=== PATIENT | female | born 1995 | race Caucasian/White ===

== ENCOUNTER 2017-08-21 17:10 | Emergency (ER) | payer BC, OTHER ==
[~2017-08-21] VITALS: Ht 154.9 cm; Wt 72.6 kg
[2017-08-21] MEDS ORDERED: LACTATED RINGERS 1,000 ML IV ONE (18:41)
[2017-08-21 18:48] LABS: BASOPHILS # (AUTO) 0.1 10^3/uL (0.0-0.1); BASOPHILS % (AUTO) 1 % (0-10); EOSINOPHILS # (AUTO) 0.1 10^3/uL (0.0-0.3); EOSINOPHILS % (AUTO) 1 % (0-10); HEMATOCRIT 45 % (35-52); HEMOGLOBIN 15.9 G/DL (11.5-16.0); LYMPHOCYTES # (AUTO) 2.7 X 10^3 (1.0-4.0); LYMPHOCYTES % (AUTO) 30 % (12-44); MEAN CORPUSCULAR HEMOGLOBIN 29 PG (25-34); MEAN CORPUSCULAR HGB CONC 35 G/DL (32-36); MEAN CORPUSCULAR VOLUME 84 FL (80-99); MEAN PLATELET VOLUME 11.6 FL (7.4-10.4); MONOCYTES # (AUTO) 0.7 X 10^3 (0.0-1.0); MONOCYTES % (AUTO) 8 % (0-12); NEUTROPHILS # (AUTO) 5.3 X 10^3 (1.8-7.8); NEUTROPHILS % (AUTO) 60 % (42-75); PLATELET COUNT 237 10^3/uL (130-400); RED BLOOD COUNT 5.41 10^6/uL (4.35-5.85); WHITE BLOOD COUNT 8.8 10^3/uL (4.3-11.0)
[2017-08-21] MEDS ORDERED: fentaNYL INJECTION 100 MCG/2 ML AMP IVP STA (18:49)
[2017-08-21] MEDS ORDERED: DICY10CA12 PO (18:52)
[2017-08-21] MEDS ORDERED: NS 250 ML (IVPB) BAG IV ONE (19:00)
[2017-08-21] MEDS ORDERED: CATHETER FLUSH 10 ML SYR IV PRN (19:00)
[2017-08-21] MEDS ORDERED: IOHEXOL 350 MG/ML 100 ML (OMNIPAQUE 350) VIAL IV ONE (19:00)
--- NOTE | 2017-08-21 19:03 | ED Abdominal Pain ---
General Chief Complaint: Abdominal/GI Problems Stated Complaint: STOMACH PAIN,[facility] STATED POSS APPENDICITIS Nursing Triage Note: Pt c/o RLQ abd pain. Pt reports n/v/d x3 days. Pt was seen at [facility] for chronic abd pain and was told she may have chronic appendicitis and to come to ER if pain got worse. Source of Information: Patient Exam Limitations: No Limitations History of Present Illness Date Seen by Provider: Aug 21, 2017 Time Seen by Provider: 18:45 Initial Comments Here with complaint of right lower quadrant pain that has been going on for the last 4 days. This is associated with nausea, vomiting and diarrhea for the last 3 days. She was seen at [facility] and they had concerns related to the right lower quadrant pain and sent her here for further evaluation. Apparently she had a similar episode a little over a year ago. Because of this, there is some concerns about chronic appendicitis although this seems to be an acute case if it is appendicitis. Timing/Duration: 3-4 Days Severity/Quality: Moderate, Aching, Sharp Location: RLQ Radiation: No Radiation Activities at Onset: None Modifying Factors: Worsens With Movement, Improves With Resting Associated Symptoms: No Back Pain, No Chest Pain, Fever/Chills, Nausea/Vomiting , No Swelling/Mass in Abdomen, No Weakness Allergies and Home Medications Allergies Coded Allergies: No Known Drug Allergies (Unverified , 08/21/17) Home Medications Dicyclomine HCl 10 Mg Capsule, 10 MG PO TID, (Reported) Patient Home Medication List Home Medication List Reviewed: Yes Review of Systems Constitutional: see HPI, No chills, fever EENTM: No Symptoms Reported Respiratory: No Symptoms Reported Cardiovascular: No Symptoms Reported Gastrointestinal: See HPI, Abdominal Pain, Diarrhea, Nausea, Vomiting Genitourinary: No Symptoms Reported Musculoskeletal: no symptoms reported Skin: no symptoms reported All Other Systems Reviewed Negative Unless Noted: Yes Past Kegmymw-Gzukqr-Nvzhcf Hx Patient Social History Alcohol Use: Denies Use Recreational Drug Use: No Smoking Status: Never a Smoker Recent Foreign Travel: No Contact w/Someone Who Travel: No Recent Infectious Disease Expo: No Physical Abuse: No Sexual Abuse: No Surgeries History of Surgeries: No Respiratory History of Respiratory Disorde: No Cardiovascular History of Cardiac Disorders: No Neurological History of Neurological Disord: No Genitourinary History of Genitourinary Disor: No Gastrointestinal History of Gastrointestinal Di: No Musculoskeletal History of Musculoskeletal Dis: No HEENT History of HEENT Disorders: No Cancer History of Cancer: No Psychosocial Suicide Risk Score: 0 Reviewed Nursing Assessment Reviewed/Agree w Nursing PMH: Yes Family Medical History Significant Family History: No Pertinent Family Hx Physical Exam Vital Signs VS - Last 72 Hours, by Label 08/21/17 17:42 Temp 98.3 Pulse 69 Resp 18 B/P (MAP) 107/59 O2 Delivery Room Air Capillary Refill : General Appearance: WD/WN, mild distress HEENT: PERRL/EOMI, pharynx normal Neck: full range of motion, supple Respiratory: lungs clear, normal breath sounds Cardiovascular: regular rate, rhythm, no murmur Gastrointestinal: soft, No guarding, No rebound, tenderness (right lower quadrant) Extremities: non-tender, normal inspection Back: normal inspection, no CVA tenderness, no vertebral tenderness Neurologic/Psychiatric: alert, oriented x 3 Skin: normal color, warm/dry Progress/Results/Core Measures Results/Orders Lab Results Laboratory Tests Test 08/21/17 18:35 Range/Units White Blood Count 8.8 4.3-11.0 10^3/uL Red Blood Count 5.41 4.35-5.85 10^6/uL Hemoglobin 15.9 11.5-16.0 G/DL Hematocrit 45 35-52 % Mean Corpuscular Volume 84 80-99 FL Mean Corpuscular Hemoglobin 29 25-34 PG Mean Corpuscular Hemoglobin Concent 35 32-36 G/DL Red Cell Distribution Width 12.0 10.0-14.5 % Platelet Count 237 130-400 10^3/uL Mean Platelet Volume 11.6 H 7.4-10.4 FL Neutrophils (%) (Auto) 60 42-75 % Lymphocytes (%) (Auto) 30 12-44 % Monocytes (%) (Auto) 8 0-12 % Eosinophils (%) (Auto) 1 0-10 % Basophils (%) (Auto) 1 0-10 % Neutrophils # (Auto) 5.3 1.8-7.8 X 10^3 Lymphocytes # (Auto) 2.7 1.0-4.0 X 10^3 Monocytes # (Auto) 0.7 0.0-1.0 X 10^3 Eosinophils # (Auto) 0.1 0.0-0.3 10^3/uL Basophils # (Auto) 0.1 0.0-0.1 10^3/uL Sodium Level 140 135-145 MMOL/L Potassium Level 4.0 3.6-5.0 MMOL/L Chloride Level 102 98-107 MMOL/L Carbon Dioxide Level 27 21-32 MMOL/L Anion Gap 11 5-14 MMOL/L Blood Urea Nitrogen 9 7-18 MG/DL Creatinine 0.93 0.60-1.30 MG/DL Estimat Glomerular Filtration Rate > 60 BUN/Creatinine Ratio 10 Glucose Level 82 70-105 MG/DL Calcium Level 9.9 8.5-10.1 MG/DL Total Bilirubin 1.1 H 0.1-1.0 MG/DL Aspartate Amino Transf (AST/SGOT) 20 5-34 U/L Alanine Aminotransferase (ALT/SGPT) 19 0-55 U/L Alkaline Phosphatase 60 40-136 U/L C-Reactive Protein High Sensitivity 0.40 0.00-0.50 MG/DL Total Protein 8.1 6.4-8.2 GM/DL Albumin 4.9 H 3.2-4.5 GM/DL My Orders Orders - SAVANNA PACK MD Cbc With Automated Diff (08/21/17 18:22) Comprehensive Metabolic Panel (08/21/17 18:22) Hs C Reactive Protein (08/21/17 18:22) Saline Lock/Iv-Start (08/21/17 18:22) Urine Bedside (08/21/17 18:22) Saline Lock/Iv-Start (08/21/17 18:22) Saline Lock/Iv-Start (08/21/17 18:41) Lactated Ringers (Lr 1000 Ml Iv Solution (08/21/17 18:41) Fentanyl Injection (Sublimaze Injection (08/21/17 18:49) Ct Abd/Pelv W (Appendicitis) (08/21/17 18:58) Iohexol Injection (Omnipaque 350 Mg/Ml 1 (08/21/17 19:00) Ns (Ivpb) (Sodium Chloride 0.9%) (08/21/17 19:00) Pharmacy Communication (Pharmacy Communi (08/21/17 19:00) Sodium Chloride Flush (Catheter Flush Sy (08/21/17 19:00) Medications Given in ED Current Medications Medications Dose Ordered Sig/Bola Route Start Time Stop Time Status Last Admin Dose Admin Iohexol 100 ml ONCE ONCE IV 08/21/17 19:00 08/21/17 19:02 DC 08/21/17 19:12 100 ML Lactated Ringer's 1,000 ml @ 0 mls/hr Q0M ONCE IV 08/21/17 18:41 08/21/17 18:42 DC 08/21/17 18:54 1,000 MLS/HR Sodium Chloride 10 ml NEEDED PRN IV 08/21/17 19:00 08/21/17 19:13 10 ML Sodium Chloride 250 ml ONCE ONCE IV 08/21/17 19:00 08/21/17 19:02 DC 08/21/17 19:13 80 ML Vital Signs/I&O Vital Sign - Last 12Hours 08/21/17 17:42 Temp 98.3 Pulse 69 Resp 18 B/P (MAP) 107/59 O2 Delivery Room Air Point of Care Testing Urine -Bedside: Negative Progress Note : Progress Note Seen and evaluated. IV, labs, UA, UCG ordered. LR 1 L bolus. Fentanyl [address] abdomen pelvis appendicitis protocol ordered. Monitor patient. 1950: Patient was seen by Dr. Wallace and myself after talking with Dr. Schroeder. No indications of appendicitis on labs or on the CT scan. This is apparently her third CT scan in the last year. Dr. Wallace will see her in the office on Thursday they will get further evaluation with ultrasound possibly and/ or endoscopy or otherwise as needed. Patient agrees. Discharged home with return precautions. Patient verbalize understanding instructions and agreement with plan. Diagnostic Imaging Diagonstic Imaging: CT Plain Films/CT/US/NM/MRI: abdomen, pelvis Comments NAME: [facility]EN[facility] REC#: [id number] PT STATUS: REG ER : 1995 PHYSICIAN: SAVANNA PACK MD ADMIT DATE: 08/21/17/ER Signed Date of Exam: 08/21/17 CT ABD/PELV W (APPENDICITIS) PROCEDURE: CT abdomen and pelvis with contrast, rule out appendicitis. TECHNIQUE: Multiple contiguous axial images were obtained through the abdomen and pelvis after the administration of intravenous contrast. INDICATION: Right lower quadrant abdominal pain x1 week. Nausea, vomiting, and diarrhea. Fever. COMPARISON: None. FINDINGS: Included portions of the lung bases are clear. CT abdomen: Small bowel loops are nondistended. Normal appendix is identified. The kidneys, adrenal glands, spleen, pancreas, and liver have a normal CT appearance. There is no loculated fluid collection, free fluid, nor free air within the abdomen. No abnormal mesenteric or retroperitoneal adenopathy is seen. CT pelvis: Small amount of free fluid is noted within the pelvis. There is a cystic structure in the right adnexa which appears to be associated with the right ovary that measures 1.5 x 1.5 cm. There is no loculated fluid collection or free air within the pelvis. Urinary bladder is unopacified. No calculi are seen within the urinary bladder. There is no abnormal adenopathy. Bony structures show no acute abnormalities. IMPRESSION: 1. Mild amount of free fluid within the pelvis, which may be physiologic and related to right ovarian cyst. 2. Normal appendix. 3. No other acute abnormalities are seen within the abdomen or pelvis. Dictated by: Dictated on workstation # [id number] Dict: 08/21/171917 Trans: 08/21/171924 Interpreted by: VIVEK LORA MD Electronically signed by: VIVEK LORA MD 08/21/171924 Departure Communication (Admissions) Time/Spoke to Consulting Phy: 19:30 Impression Impression: Primary Impression: Right lower quadrant abdominal pain Disposition: HOME, SELF-CARE Condition: Stable Departure-Patient Inst. Decision time for Depature: 19:58 Referrals: LYDIA WALLACE DO [facility] (PCP) Primary Care Physician Patient Instructions: Acute Abdomen (Belly Pain), Adult (DC) Add. Discharge Instructions: All discharge instructions reviewed with patient and/or family. Voiced understanding. May take ibuprofen 600 mg every 8 hours as needed for pain. You may take Tylenol/acetaminophen 1000 mg every 8 hours as needed for pain. Drink plenty of fluids. You may eat a light diet. Follow-up with Dr. Wallace on Thursday for recheck and further evaluation. Call his office first thing in the morning for appointment time. Return for worse pain, fever, vomiting, weakness, breathing problems or other concerns as needed. Copy Copies To 1: WALLACE,LYDIA D DO Copies To 2: LUIS EDUARDO SCHROEDER MD, TIMOTHY D MD Aug 21, 2017 19:03
[2017-08-21 19:11] LABS: ALANINE AMINOTRANSFERASE 19 U/L (0-55); ALBUMIN 4.9 GM/DL (3.2-4.5); ALKALINE PHOSPHATASE 60 U/L (40-136); BILIRUBIN,TOTAL 1.1 MG/DL (0.1-1.0); BUN/CREATININE RATIO 10; CALCIUM 9.9 MG/DL (8.5-10.1); CARBON DIOXIDE 27 MMOL/L (21-32); CHLORIDE 102 MMOL/L (98-107); CREATININE SERUM 0.93 MG/DL (0.60-1.30); GFR ESTIMATED > 60; GLUCOSE 82 MG/DL (70-105); SODIUM 140 MMOL/L (135-145); TOTAL PROTEIN 8.1 GM/DL (6.4-8.2)
--- NOTE | 2017-08-21 19:25 | Diagnostic Imaging Report ---
PROCEDURE: CT abdomen and pelvis with contrast, rule out appendicitis. TECHNIQUE: Multiple contiguous axial images were obtained through the abdomen and pelvis after the administration of intravenous contrast. INDICATION: Right lower quadrant abdominal pain x1 week. Nausea, vomiting, and diarrhea. Fever. COMPARISON: None. FINDINGS: Included portions of the lung bases are clear. CT abdomen: Small bowel loops are nondistended. Normal appendix is identified. The kidneys, adrenal glands, spleen, pancreas, and liver have a normal CT appearance. There is no loculated fluid collection, free fluid, nor free air within the abdomen. No abnormal mesenteric or retroperitoneal adenopathy is seen. CT pelvis: Small amount of free fluid is noted within the pelvis. There is a cystic structure in the right adnexa which appears to be associated with the right ovary that measures 1.5 x 1.5 cm. There is no loculated fluid collection or free air within the pelvis. Urinary bladder is unopacified. No calculi are seen within the urinary bladder. There is no abnormal adenopathy. Bony structures show no acute abnormalities. IMPRESSION: 1. Mild amount of free fluid within the pelvis, which may be physiologic and related to right ovarian cyst. 2. Normal appendix. 3. No other acute abnormalities are seen within the abdomen or pelvis. Dictated by: Dictated on workstation # [id number]
--- NOTE | 2017-08-21 20:01 | Consultation ---
History of Present Illness History of Present Illness Patient Consulted On(chirag/time) 08/21/17 20:00 Date Seen by Provider: Aug 21, 2017 Time Seen by Provider: 20:01 History of Present Illness consult requested by Dr. Guaman for right lower quadrant abdominal pain. seen and evaluated in emergency dept. Patient has been having pain in the right lower quadrant for about a week. aching sharp pain in the right lower quadrant with no radiation. movements make pain worse. resting make better. She has had a previous episode reported in May of last year, but since then not other episodes. I reviewed her ct scan and the appendix has normal appearance and a right ovarian cyst, with small amount of free fluid. No other complaints at this time. States has had fever around 99.5. Denies sweats chills shortness of breath or chest pain. Allergies and Home Medications Allergies Coded Allergies: No Known Drug Allergies (Unverified , 08/21/17) Home Medications Dicyclomine HCl 10 Mg Capsule, 10 MG PO TID, (Reported) Patient Home Medication List Home Medication List Reviewed: Yes Past Kajsbvm-Oqinoe-Bwclpr Hx Patient Social History Alcohol Use: Denies Use Recreational Drug Use: No Smoking Status: Never a Smoker Recent Foreign Travel: No Contact w/Someone Who Travel: No Recent Infectious Disease Expo: No Surgeries History of Surgeries: No Respiratory History of Respiratory Disorde: No Cardiovascular History of Cardiac Disorders: No Neurological History of Neurological Disord: No Genitourinary History of Genitourinary Disor: No Gastrointestinal History of Gastrointestinal Di: No Musculoskeletal History of Musculoskeletal Dis: No HEENT History of HEENT Disorders: No Cancer History of Cancer: No Reviewed Nursing Assessment Reviewed/Agree w Nursing PMH: Yes Family Medical History Significant Family History: No Pertinent Family Hx Review of Systems-General Constitutional: no symptoms reported EENTM: no symptoms reported Respiratory: no symptoms reported Cardiovascular: no symptoms reported Gastrointestinal: see HPI Genitourinary: no symptoms reported Musculoskeletal: no symptoms reported Skin: no symptoms reported Psychiatric/Neurological: No Symptoms Reported Physical Exam-General Problems Physical Exam Vital Signs Vital Signs - First Documented 08/21/17 17:42 Temp 98.3 Pulse 69 Resp 18 B/P (MAP) 107/59 O2 Delivery Room Air Capillary Refill : General Appearance: WD/WN, no apparent distress HEENT: PERRL/EOMI, normal ENT inspection Neck: full range of motion, supple, normal inspection Respiratory: chest non-tender, no respiratory distress, no accessory muscle use Cardiovascular: regular rate, rhythm Gastrointestinal: soft, no organomegaly, no pulsatile mass, tenderness (right lower quadrant) Rectal: deferred Back: normal inspection, no CVA tenderness Extremities: normal range of motion, non-tender, normal inspection Neurologic/Psychiatric: pelt dropper II-XII nml as tested, no motor/sensory deficits, alert, normal mood/affect, oriented x 3 Skin: normal color, warm/dry Lymphatic: no adenopathy Data Review Labs Laboratory Tests 08/21/17 18:35: White Blood Count 8.8, Red Blood Count 5.41, Hemoglobin 15.9, Hematocrit 45, Mean Corpuscular Volume 84, Mean Corpuscular Hemoglobin 29, Mean Corpuscular Hemoglobin Concent 35, Red Cell Distribution Width 12.0, Platelet Count 237, Mean Platelet Volume 11.6H, Neutrophils (%) (Auto) 60, Lymphocytes (%) (Auto) 30 , Monocytes (%) (Auto) 8, Eosinophils (%) (Auto) 1, Basophils (%) (Auto) 1, Neutrophils # (Auto) 5.3, Lymphocytes # (Auto) 2.7, Monocytes # (Auto) 0.7, Eosinophils # (Auto) 0.1, Basophils # (Auto) 0.1, Sodium Level 140, Potassium Level 4.0, Chloride Level 102, Carbon Dioxide Level 27, Anion Gap 11, Blood Urea Nitrogen 9, Creatinine 0.93, Estimat Glomerular Filtration Rate > 60, BUN/ Creatinine Ratio 10, Glucose Level 82, Calcium Level 9.9, Total Bilirubin 1.1H, Aspartate Amino Transf (AST/SGOT) 20, Alanine Aminotransferase (ALT/SGPT) 19, Alkaline Phosphatase 60, C-Reactive Protein High Sensitivity 0.40, Total Protein 8.1, Albumin 4.9H Assessment/Plan Assessment/Plan Assessment/Plan right lower quadrant abdominal pain ct scan with normal appendix an no elevation of WBC will have her follow up in office on thursday. will likely get u/s for further evaluation if worse return to er. okay to oh home from sugical standpoint. LYDIA WALLACE DO Aug 21, 2017 20:01
[2017-08-21] MEDS ORDERED: RX-HYDROCODONE/APAP 5/325 MG #4 TAB PK PO PRN (20:30)
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
== END 2017-08-21 20:32 | disposition home or self-care (01) ==
LOC: ER 17:12
DX: R10.31 Right lower quadrant pain (principal)
CPT/HCPCS: 36415; 74177; 80053; 84703; 85025; 86141; 96361; 96374

== ENCOUNTER 2017-08-28 16:28 | Day surgery (SDC) | payer BC ==
[~2017-08-28] VITALS: Ht 154.9 cm; Wt 72.6 kg
[~2017-08-28 16:28] MED LIST changes: -ACHD5005 PO; -DOCU-143 PO; -LORA10TA76 PO
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
[2017-08-28] MEDS ORDERED: NS IV 1000 ML 1,000 ML IV ONE (17:00)
[2017-08-28 17:07] LABS: BILIRUBIN,URINE NEGATIVE (NEGATIVE); CLARITY,URINE CLEAR; COLOR,URINE YELLOW; GLUCOSE, URINE (UA) NEGATIVE (NEGATIVE); KETONES,URINE NEGATIVE (NEGATIVE); LEUKOCYTE ESTERASE ,URINE NEGATIVE (NEGATIVE); NITRITE,URINE NEGATIVE (NEGATIVE); PH,URINE 7 (5-9); PROTEIN,URINE NEGATIVE (NEGATIVE); UROBILINOGEN,URINE NORMAL (NORMAL)
[2017-08-28 17:15] LABS: AMORPHOUS SEDIMENT,UR MOD AMOR URATES /LPF; BACTERIA,URINE NEGATIVE /HPF
[2017-08-28 17:16] LABS: BASOPHILS % (AUTO) 0 % (0-10); EOSINOPHILS # (AUTO) 0.1 10^3/uL (0.0-0.3); EOSINOPHILS % (AUTO) 1 % (0-10); HEMATOCRIT 40 % (35-52); HEMOGLOBIN 13.9 G/DL (11.5-16.0); LYMPHOCYTES # (AUTO) 2.1 X 10^3 (1.0-4.0); LYMPHOCYTES % (AUTO) 22 % (12-44); MEAN CORPUSCULAR HEMOGLOBIN 29 PG (25-34); MEAN CORPUSCULAR HGB CONC 35 G/DL (32-36); MEAN CORPUSCULAR VOLUME 85 FL (80-99); MEAN PLATELET VOLUME 11.8 FL (7.4-10.4); MONOCYTES # (AUTO) 0.9 X 10^3 (0.0-1.0); MONOCYTES % (AUTO) 9 % (0-12); NEUTROPHILS # (AUTO) 6.2 X 10^3 (1.8-7.8); NEUTROPHILS % (AUTO) 67 % (42-75); PLATELET COUNT 198 10^3/uL (130-400); RED BLOOD COUNT 4.73 10^6/uL (4.35-5.85); RED CELL DISTRIBUTION WIDTH 12.3 % (10.0-14.5); WHITE BLOOD COUNT 9.3 10^3/uL (4.3-11.0)
--- NOTE | 2017-08-28 17:19 | ED Abdominal Pain ---
General Chief Complaint: Abdominal/GI Problems Stated Complaint: POSS RUPTURED OVARIAN CYST Nursing Triage Note: PT STATES HAS POSSIBLE OVARIAN CYST RUPTURE TODAY, HAD ULTRA SOUND TODAY. WAS SEEN LAST WEEK FOR ABD PAIN Source of Information: Patient Exam Limitations: No Limitations History of Present Illness Date Seen by Provider: Aug 28, 2017 Time Seen by Provider: 17:00 Initial Comments Here with report of persistent right lower quadrant abdominal pain. She had ultrasound done today and was worried about ovarian cyst. The ultrasound does not show any significant findings other than small amount of free fluid. She states that the pain is been fairly persistent for 2 weeks and she's been using ibuprofen and Tylenol that is not helping. Even when she had stronger pain medicine it really wasn't helping. She is not sure what going on but it's becoming more intolerable. Does have some nausea but no vomiting. Reports that she had a fever today. Also complaining of right breast pain and tenderness at the nipple. She states the breast feels harder than the other breast. Timing/Duration: Changing Over Time, Other (2 weeks) Severity/Quality: Moderate, Aching, Sharp Location: RLQ Radiation: Epigastric Activities at Onset: None Modifying Factors: Worsens With Movement Associated Symptoms: No Back Pain, No Chest Pain, Fever/Chills, Nausea/Vomiting , No Shortness of Air, No Weakness Allergies and Home Medications Allergies Coded Allergies: No Known Drug Allergies (Unverified , 08/21/17) Home Medications No Active Prescriptions or Reported Meds Patient Home Medication List Home Medication List Reviewed: Yes Review of Systems Constitutional: see HPI, fever EENTM: No Symptoms Reported Respiratory: No Symptoms Reported, Denies Shortness of Air, Denies Wheezing Cardiovascular: No Symptoms Reported Gastrointestinal: Abdominal Pain, Nausea, Denies Vomiting Genitourinary: No Symptoms Reported, Denies Frequency, Denies Hematuria, Denies Pain Musculoskeletal: no symptoms reported Skin: see HPI, lumps Psychiatric/Neurological: No Symptoms Reported All Other Systems Reviewed Negative Unless Noted: Yes Past Jelnddk-Zdvqsy-Acumaa Hx Past Med/Social Hx: Reviewed Nursing Past Med/Soc Hx Patient Social History Alcohol Use: Denies Use Recreational Drug Use: No Smoking Status: Never a Smoker Recent Foreign Travel: No Contact w/Someone Who Travel: No Recent Infectious Disease Expo: No Recent Hopitalizations: No Ebola Symptoms: Denies Symptoms Listed Physical Abuse: No Sexual Abuse: No Past Medical History Surgeries: No Respiratory: No Cardiac: No Neurological: No Genitourinary: No Gastrointestinal: No Musculoskeletal: No HEENT: No Cancer: No Nursing Suicide Risk Score: 0 Family Medical History Reviewed Nursing Family Hx No Pertinent Family Hx Physical Exam Vital Signs Vital Signs - First Documented 08/28/17 16:33 Temp 100.5 Pulse 80 Resp 18 B/P (MAP) 118/67 Capillary Refill : General Appearance: WD/WN, no apparent distress HEENT: PERRL/EOMI, pharynx normal Neck: full range of motion, supple Respiratory: lungs clear, normal breath sounds Cardiovascular: regular rate, rhythm, no murmur Peripheral Pulses: 2+ Dorsalis Pedis (R), 2+ Left Dors-Pedis (L), 2+ Radial Pulses (R), 2+ Radial Pulses (L) Gastrointestinal: soft, tenderness (right lower quadrant) Extremities: non-tender, normal inspection Back: normal inspection, no CVA tenderness, no vertebral tenderness Neurologic/Psychiatric: alert, oriented x 3 Skin: normal color, warm/dry, other (breast exam shows bilateral breast to be without significant mass or nodules. Right nipple does appear to have some topical abrasion but no bleeding. She does have some small irritated hair follicles where she has shaved the area on the breast that no significant erythema or other findings noted.) Progress/Results/Core Measures Lab Results Laboratory Tests Test 08/28/17 17:01 08/28/17 17:07 Range/Units Urine Color YELLOW Urine Clarity CLEAR Urine pH 7 5-9 Urine Specific [place] 1.015 L 1.016-1.022 Urine Protein NEGATIVE NEGATIVE Urine Glucose (UA) NEGATIVE NEGATIVE Urine Ketones NEGATIVE NEGATIVE Urine Nitrite NEGATIVE NEGATIVE Urine Bilirubin NEGATIVE NEGATIVE Urine Urobilinogen NORMAL NORMAL MG/DL Urine Leukocyte Esterase NEGATIVE NEGATIVE Urine RBC (Auto) NEGATIVE NEGATIVE Urine RBC NONE /HPF Urine WBC NONE /HPF Urine Squamous Epithelial Cells NONE /HPF Urine Crystals NONE /LPF Urine Amorphous Sediment MOD KUSUM URATES H /LPF Urine Bacteria NEGATIVE /HPF Urine Casts NONE /LPF Urine Mucus NEGATIVE /LPF Urine Culture Indicated NO White Blood Count 9.3 4.3-11.0 10^3/uL Red Blood Count 4.73 4.35-5.85 10^6/uL Hemoglobin 13.9 11.5-16.0 G/DL Hematocrit 40 35-52 % Mean Corpuscular Volume 85 80-99 FL Mean Corpuscular Hemoglobin 29 25-34 PG Mean Corpuscular Hemoglobin Concent 35 32-36 G/DL Red Cell Distribution Width 12.3 10.0-14.5 % Platelet Count 198 130-400 10^3/uL Mean Platelet Volume 11.8 H 7.4-10.4 FL Neutrophils (%) (Auto) 67 42-75 % Lymphocytes (%) (Auto) 22 12-44 % Monocytes (%) (Auto) 9 0-12 % Eosinophils (%) (Auto) 1 0-10 % Basophils (%) (Auto) 0 0-10 % Neutrophils # (Auto) 6.2 1.8-7.8 X 10^3 Lymphocytes # (Auto) 2.1 1.0-4.0 X 10^3 Monocytes # (Auto) 0.9 0.0-1.0 X 10^3 Eosinophils # (Auto) 0.1 0.0-0.3 10^3/uL Basophils # (Auto) 0.0 0.0-0.1 10^3/uL Sodium Level 142 135-145 MMOL/L Potassium Level 4.0 3.6-5.0 MMOL/L Chloride Level 107 98-107 MMOL/L Carbon Dioxide Level 30 21-32 MMOL/L Anion Gap 5 5-14 MMOL/L Blood Urea Nitrogen 12 7-18 MG/DL Creatinine 0.79 0.60-1.30 MG/DL Estimat Glomerular Filtration Rate > 60 BUN/Creatinine Ratio 15 Glucose Level 100 70-105 MG/DL Calcium Level 9.3 8.5-10.1 MG/DL Total Bilirubin 0.3 0.1-1.0 MG/DL Aspartate Amino Transf (AST/SGOT) 20 5-34 U/L Alanine Aminotransferase (ALT/SGPT) 17 0-55 U/L Alkaline Phosphatase 56 40-136 U/L Total Protein 6.8 6.4-8.2 GM/DL Albumin 4.3 3.2-4.5 GM/DL My Orders Orders - SAVANNA PACK MD Cbc With Automated Diff (08/28/17 17:00) Comprehensive Metabolic Panel (08/28/17 17:00) Ua Culture If Indicated (08/28/17 17:00) Saline Lock/Iv-Start (08/28/17 17:00) Ns Iv 1000 Ml (Sodium Chloride 0.9%) (08/28/17 17:00) Medications Given in ED Current Medications Medications Dose Ordered Sig/Bola Route Start Time Stop Time Status Last Admin Dose Admin Sodium Chloride 1,000 ml @ 0 mls/hr Q0M ONCE IV 08/28/17 17:00 08/28/17 17:01 DC 08/28/17 17:14 999 MLS/HR Vital Signs/I&O 08/28/17 16:33 Temp 100.5 Pulse 80 Resp 18 B/P (MAP) 118/67 Urine -Bedside: Negative Progress Note : Progress Note Seen and evaluated. IV, labs, UA and UCG ordered. Normal saline 1 L bolus. I discussed the case with Dr. Mejia and he will do consult in the ER. Pending labs and consult. I did review the ultrasound from earlier today as well as the previous CT scan on her last visit here in which I saw her as well. Ultrasound results noted and reviewed below but not ordered in the ER. 1730: Dr. Mejia has evaluated the patient and he would like to have her admitted for further monitoring and will consider diagnostic laparoscopy tomorrow. Patient agrees with plan. Diagonstic Imaging: Ultrasound Plain Films/CT/US/NM/MRI: pelvis Comments Results from earlier today. VIA [facility]. [place], [place] NAME: HENNA [facility] REC#: [id number] PT STATUS: REG CLI : 1995 PHYSICIAN: LYDIA WALLACE DO ADMIT DATE: 08/28/17/RAD Draft Date of Exam:08/28/17 US NON OB PELVIS COMP/TRANSVAG INDICATION: Pelvic pain. COMPARISON: CT scan from 08/21/2017. PROCEDURE: Real-time grayscale and color Doppler ultrasound of the pelvis is performed transabdominally and endovaginally. FINDINGS: The uterus measures 5.9 cm x 4.2 cm x 3.1 cm. There are a couple of nabothian cysts noted. Endometrium is about 5 mm in thickness. The right ovary measures 2.9 cm x 1.5 cm x 2.3 cm and the left ovary measures 3.2 cm x 1.6 cm x 2.7 cm. No adnexal mass is seen. There is a small amount of free fluid in the pelvis which is nonspecific but may be physiologic. IMPRESSION: 1. There is a small amount of free fluid in the pelvis which is nonspecific but may be physiologic. 2. No additional abnormality is seen. Dictated on workstation # [id number] Dict: 08/28/17 1626 Trans: 08/28/17 1640 [id number] Interpreted by: JESS FELIZ DO Electronically signed by: Departure Impression Primary Impression: Right lower quadrant abdominal pain Disposition: ADMITTED INPATIENT Condition: Stable Admissions Decision to Admit Reason: Admit from ER (General) Decision to Admit/Date: Aug 28, 2017 Time/Decision to Admit Time: 17:00 Departure-Patient Inst. Referrals: NO,LOCAL PHYSICIAN (PCP) Primary Care Physician LUIS EDUARDO POOLE MD (Family) Primary Care Physician Scripts No Active Prescriptions or Reported Meds SAVANNA PACK MD Aug 28, 2017 17:19
[2017-08-28 17:34] LABS: ALANINE AMINOTRANSFERASE 17 U/L (0-55); ALBUMIN 4.3 GM/DL (3.2-4.5); ALKALINE PHOSPHATASE 56 U/L (40-136); BILIRUBIN,TOTAL 0.3 MG/DL (0.1-1.0); BUN/CREATININE RATIO 15; CALCIUM 9.3 MG/DL (8.5-10.1); CARBON DIOXIDE 30 MMOL/L (21-32); CHLORIDE 107 MMOL/L (98-107); CREATININE SERUM 0.79 MG/DL (0.60-1.30); GFR ESTIMATED > 60; GLUCOSE 100 MG/DL (70-105); SODIUM 142 MMOL/L (135-145); TOTAL PROTEIN 6.8 GM/DL (6.4-8.2)
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
[2017-08-28] MEDS ORDERED: morphine INJ 10 MG/ML 1ML (SYR OR VIAL) IVP PRN (18:30)
[2017-08-28] MEDS ORDERED: CATHETER FLUSH 10 ML SYR IV PRN (18:45)
[2017-08-28 19:00] VITALS: BP 117/70
[2017-08-28] MEDS: ONDANSETRON 4 MG/2 ML (SDV) Z0FRAN IVP PRN ×2 (19:31→23:30)
[2017-08-28] MEDS: morphine INJ 4 MG/ML 1 ML (VIAL/SYRINGE) IV PRN ×3 (19:31→23:25)
[2017-08-28] MEDS: LACTATED RINGERS 1,000 ML IV SCH (19:32)
--- NOTE | 2017-08-28 21:15 | History & Physical-Surgical ---
History of Present Illness History of Present Illness Reason for visit/HPI HPI per ED: Here with report of persistent right lower quadrant abdominal pain. She had ultrasound done today and was worried about ovarian cyst. The ultrasound does not show any significant findings other than small amount of free fluid. She states that the pain is been fairly persistent for 2 weeks and she's been using ibuprofen and Tylenol that is not helping. Even when she had stronger pain medicine it really wasn't helping. She is not sure what going on but it's becoming more intolerable. Does have some nausea but no vomiting. Reports that she had a fever today. Also complaining of right breast pain and tenderness at the nipple. She states the breast feels harder than the other breast. Timing/Duration: Changing Over Time, Other (2 weeks) Severity/Quality: Moderate, Aching, Sharp Location: RLQ Radiation: Epigastric Activities at Onset: None Modifying Factors: Worsens With Movement Associated Symptoms: No Back Pain, No Chest Pain, Fever/Chills, Nausea/Vomiting , No Shortness of Air, No Weakness When I saw the pt she states that the pain is 8 out of 10 on a 1-10 scale. + Nausea today but no emesis. Nothing make pain better. She is very concerned that it is not going away, actually saw Dr. Hanna on Thursday and last weekend. Pt states she did have some vaginal discharge, but nothing out of the ordinary and states she is not sexually active. Date of Admission Aug 28, 2017 at 18:14 Time Seen by Provider: 16:47 I consulted on this patient on Attending Physician Ronnie Krishnan DO Admitting Physician No,Local Physician Consult Allergies and Home Medications Allergies Coded Allergies: No Known Drug Allergies (Unverified , 08/21/17) Home Medications No Active Prescriptions or Reported Meds Patient Home Medication List Home Medication List Reviewed: Yes Past Qayeewr-Atxoth-Gfrdws Hx Patient Social History Alcohol Use: Rarely Uses Number of Drinks Today: 0 Recreational Drug Use: No Smoking Status: Never a Smoker Recent Foreign Travel: No Contact w/Someone Who Travel: No Recent Infectious Disease Expo: No Recent Hopitalizations: No Ebola Symptoms: Denies Symptoms Listed Physical Abuse Screen: No Sexual Abuse: No Immunizations Up To Date PED Vaccines UTD: Yes Seasonal Allergies Seasonal Allergies: Yes Surgeries History of Surgeries: Yes Respiratory History of Respiratory Disorde: No Cardiovascular History of Cardiac Disorders: No Neurological History of Neurological Disord: No Reproductive System Female Reproductive Disorders: Ovarian Cyst Genitourinary History of Genitourinary Disor: No Gastrointestinal History of Gastrointestinal Di: No Musculoskeletal History of Musculoskeletal Dis: No Endocrine History of Endocrine Disorders: No HEENT History of HEENT Disorders: No Cancer History of Cancer: No Psychosocial History of Psychiatric Problem: No Integumentary History of Skin or Integumenta: No Blood Transfusions History of Blood Disorders: No Family Medical History Significant Family History: Cancer (granmother has ovarian cancer) Family Medial History: Anxiety disorder 19 FATHER FH: bipolar disorder 19 MOTHER FH: breast cancer 19 MOTHER FH: depression 19 FATHER Hypertension 19 FATHER Ovarian cyst 19 MOTHER Psychosocial problem 19 MOTHER (Bipolar) Constitutional: chills, diaphoresis, malaise, weakness EENTM: No blurred vision, No mouth pain, No mouth swelling, No epistaxis, No throat pain Respiratory: No cough, No dyspnea on exertion, No hemoptysis Cardiovascular: No chest pain, No edema, No palpitations Gastrointestinal: RLQ, No melena, nausea, No vomiting Genitourinary: No dysuria, No frequency, No hematuria Musculoskeletal: No back pain, No gout, No joint pain, No joint swelling Skin: No change in color, No change in hair/nails Psychiatric/Neurological: Denies Anxiety, Denies Depressed pt denies any abnormal bleeding or bruising, no heat or cold intolerance Physical Exam Vital Signs Vital Signs - First Documented 08/28/17 08/28/17 16:33 17:31 Temp 100.5 Pulse 80 Resp 18 B/P (MAP) 118/67 Pulse Ox 100 Capillary Refill : General Appearance: WD/WN, Mild Distress Eyes: Bilateral Eye PERRL, Bilateral Eye Abnormal EOM HEENT: Pharynx Normal, No Scleral Icterus (L), No Scleral Icterus (R) Neck: Full Range of Motion, Normal Inspection, Non Tender, Supple Respiratory: Chest Non Tender, Lungs Clear, Normal Breath Sounds, No Accessory Muscle Use, No Respiratory Distress Cardiovascular: Regular Rate, Rhythm, No Edema, No Murmur Gastrointestinal: No Organomegaly, Soft, Guarding (voluntary in RLQ), No Mass, Tenderness (RLQ) Rectal: Deferred Back: No CVA Tenderness, No Vertebral Tenderness Extremity: Normal Capillary Refill, Normal Range of Motion, Non Tender, No Calf Tenderness Neurologic/Psychiatric: Alert, Oriented x3, No Motor/Sensory Deficits, Normal Mood/Affect, care consultant II-XII Norm as Tested Skin: Normal Color, Warm/Dry Lymphatic: No Adenopathy (neck, axilla or groin) Data Review Labs Laboratory Tests 08/28/17 17:01: Urine Color YELLOW, Urine Clarity CLEAR, Urine pH 7, Urine Specific [place] 1.015L, Urine Protein NEGATIVE, Urine Glucose (UA) NEGATIVE, Urine Ketones NEGATIVE, Urine Nitrite NEGATIVE, Urine Bilirubin NEGATIVE, Urine Urobilinogen NORMAL, Urine Leukocyte Esterase NEGATIVE, Urine RBC (Auto) NEGATIVE, Urine RBC NONE, Urine WBC NONE, Urine Squamous Epithelial Cells NONE, Urine Crystals NONE , Urine Amorphous Sediment MOD KUSUM URATESH, Urine Bacteria NEGATIVE, Urine Casts NONE, Urine Mucus NEGATIVE, Urine Culture Indicated NO 08/28/17 17:07: White Blood Count 9.3, Red Blood Count 4.73, Hemoglobin 13.9, Hematocrit 40, Mean Corpuscular Volume 85, Mean Corpuscular Hemoglobin 29, Mean Corpuscular Hemoglobin Concent 35, Red Cell Distribution Width 12.3, Platelet Count 198, Mean Platelet Volume 11.8H, Neutrophils (%) (Auto) 67, Lymphocytes (%) (Auto) 22 , Monocytes (%) (Auto) 9, Eosinophils (%) (Auto) 1, Basophils (%) (Auto) 0, Neutrophils # (Auto) 6.2, Lymphocytes # (Auto) 2.1, Monocytes # (Auto) 0.9, Eosinophils # (Auto) 0.1, Basophils # (Auto) 0.0, Sodium Level 142, Potassium Level 4.0, Chloride Level 107, Carbon Dioxide Level 30, Anion Gap 5, Blood Urea Nitrogen 12, Creatinine 0.79, Estimat Glomerular Filtration Rate > 60, BUN/ Creatinine Ratio 15, Glucose Level 100, Calcium Level 9.3, Total Bilirubin 0.3, Aspartate Amino Transf (AST/SGOT) 20, Alanine Aminotransferase (ALT/SGPT) 17, Alkaline Phosphatase 56, Total Protein 6.8, Albumin 4.3 Assessment/Plan Assessment/Plan Admission Diagonsis RLQ pain Admission Status: Observation Assessment/Plan RLQ pain, chronic Pt has pain that has not gone away for 2-3 weeks and may be getting worse. Her CT showed some free fluid and right ovarian cyst. She did have a temperature today, does not appear to have a UTI. I talked with her about her options; could go home with pain medications but that hasn't helped or diagnostic laparoscopy. She still could have early/ chronic appendicitis, it could just be a ruptured ovarian cyst, endometriosis, or even a Meckel's diverticulum...it could be nothing. She has had diarrhea and may need stool studies, she states she had colonoscopy last year for similar symptoms. She would like to at least try the diagnostic laparoscopy; since she's had "a full complete work-up except laparoscopy". We discussed risks and complications not limited to pain, bleeding, infection, scar and damage to bowel. All questions answered to her satisfaction; I got in touch with Dr. Hanna an he will do the scope in the morning. She had a shake at 3pm and that is why we can't do it today. Clinical Quality Measures DVT/VTE Risk/Contraindication: RFS Level Per Nursing on Admit: 0=No Risk/No VTE PPX RONNIE KRISHNAN DO Aug 28, 2017 21:15
[2017-08-29] VITALS: BP 110/55
[2017-08-29] MEDS: LACTATED RINGERS 1,000 ML IV SCH ×3 (03:18→09:46)
[2017-08-29 03:29] VITALS: BP 111/66
[2017-08-29 05:01] LABS: BASOPHILS # (AUTO) 0.1 10^3/uL (0.0-0.1); BASOPHILS % (AUTO) 1 % (0-10); EOSINOPHILS # (AUTO) 0.2 10^3/uL (0.0-0.3); EOSINOPHILS % (AUTO) 2 % (0-10); HEMATOCRIT 39 % (35-52); HEMOGLOBIN 13.3 G/DL (11.5-16.0); LYMPHOCYTES # (AUTO) 2.7 X 10^3 (1.0-4.0); LYMPHOCYTES % (AUTO) 26 % (12-44); MEAN CORPUSCULAR HEMOGLOBIN 29 PG (25-34); MEAN CORPUSCULAR HGB CONC 34 G/DL (32-36); MEAN CORPUSCULAR VOLUME 86 FL (80-99); MEAN PLATELET VOLUME 12.1 FL (7.4-10.4); MONOCYTES # (AUTO) 0.8 X 10^3 (0.0-1.0); MONOCYTES % (AUTO) 8 % (0-12); NEUTROPHILS # (AUTO) 6.5 X 10^3 (1.8-7.8); NEUTROPHILS % (AUTO) 64 % (42-75); PLATELET COUNT 184 10^3/uL (130-400); RED BLOOD COUNT 4.55 10^6/uL (4.35-5.85); RED CELL DISTRIBUTION WIDTH 12.3 % (10.0-14.5); WHITE BLOOD COUNT 10.2 10^3/uL (4.3-11.0)
[2017-08-29 05:33] LABS: ALANINE AMINOTRANSFERASE 15 U/L (0-55); ALBUMIN 3.8 GM/DL (3.2-4.5); ALKALINE PHOSPHATASE 50 U/L (40-136); BILIRUBIN,TOTAL 0.4 MG/DL (0.1-1.0); BUN/CREATININE RATIO 12; CALCIUM 8.8 MG/DL (8.5-10.1); CARBON DIOXIDE 23 MMOL/L (21-32); CHLORIDE 109 MMOL/L (98-107); CREATININE SERUM 0.83 MG/DL (0.60-1.30); GFR ESTIMATED > 60; GLUCOSE 94 MG/DL (70-105); SODIUM 141 MMOL/L (135-145); TOTAL PROTEIN 6.1 GM/DL (6.4-8.2)
[2017-08-29] MEDS: morphine INJ 4 MG/ML 1 ML (VIAL/SYRINGE) IV PRN ×4 (06:17→14:47)
[2017-08-29 08:00] VITALS: BP 101/64
[2017-08-29] MEDS ORDERED: LIDOCAINE/EPI 1%-1:200,000 (XYLOCAINE) 10 ML VIAL ONE (08:31)
[2017-08-29] MEDS ORDERED: SEVOFLURANE (ULTANE) 15 ML INHAL SOLN ONE (08:33)
[2017-08-29] MEDS ORDERED: DEXAMETHASONE 10 MG/ML (DECADRON) 1 ML VIAL ONE (08:33)
[2017-08-29] MEDS ORDERED: ONDANSETRON 4 MG/2 ML (SDV) Z0FRAN ONE (08:33)
[2017-08-29] MEDS ORDERED: ROCURONIUM 10 MG/ML 5 ML SYRINGE IV ONE (08:33)
[2017-08-29] MEDS ORDERED: proPOfol 200 MG/20 ML (DIPRIVAN) VIAL IV ONE (08:33)
[2017-08-29] MEDS ORDERED: fentaNYL INJECTION 100 MCG/2 ML AMP ONE ×2 (08:33→09:55)
[2017-08-29] MEDS ORDERED: LIDOCAINE PF 2% 5 ML (XYLOCAINE) VIAL ONE (08:33)
[2017-08-29] MEDS ORDERED: MIDAZOLAM 2 MG/2 ML (VERSED) VIAL ONE ×2 (08:33)
--- NOTE | 2017-08-29 08:52 | Progress Note ---
Subjective Date Seen by Provider: Aug 29, 2017 Time Seen by Provider: 08:30 Subjective/Events-last exam Still with right lower quadrant abdominal pain that has been persistent. Transvaginal u/s demonstrating small amt fluid in pelvis no other abnormality. Tmax 100.5. No nausea vomiting fever sweats chills shortness of breath or chest pain. Objective Exam Vital Signs Date Time Temp Pulse Resp B/P (MAP) Pulse Ox O2 Delivery O2 Flow Rate FiO2 08/29/17 08:00 97.6 77 18 101/64 (76) 96 Room Air 08/29/17 03:29 96.4 74 16 111/66 (81) 98 Room Air 08/29/17 00:00 97.1 81 18 110/55 (73) 99 08/28/17 19:00 98.0 77 16 117/70 (86) 100 08/28/17 17:31 100.5 80 18 100 08/28/17 16:33 100.5 80 18 118/67 I & O 08/29/17 07:00 Intake Total 2360 ml Balance 2360 ml Capillary Refill : General Appearance: WD/WN, Mild Distress HEENT: Pharynx Normal, No Scleral Icterus (L), No Scleral Icterus (R) Neck: Full Range of Motion, Normal Inspection, Non Tender, Supple Respiratory: Chest Non Tender, Lungs Clear, Normal Breath Sounds, No Accessory Muscle Use, No Respiratory Distress Cardiovascular: Regular Rate, Rhythm, No Edema, No Murmur Gastrointestinal: soft, tenderness (right lower quadrant) Extremity: Normal Capillary Refill, Normal Range of Motion, Non Tender, No Calf Tenderness Neurologic/Psychiatric: Alert, Oriented x3, No Motor/Sensory Deficits, Normal Mood/Affect, metal weigher II-XII Norm as Tested Skin: Normal Color, Warm/Dry Lymphatic: No Adenopathy (neck, axilla or groin) Results Lab Laboratory Tests 08/28/17 17:01: Urine Color YELLOW, Urine Clarity CLEAR, Urine pH 7, Urine Specific [place] 1.015L, Urine Protein NEGATIVE, Urine Glucose (UA) NEGATIVE, Urine Ketones NEGATIVE, Urine Nitrite NEGATIVE, Urine Bilirubin NEGATIVE, Urine Urobilinogen NORMAL, Urine Leukocyte Esterase NEGATIVE, Urine RBC (Auto) NEGATIVE, Urine RBC NONE, Urine WBC NONE, Urine Squamous Epithelial Cells NONE, Urine Crystals NONE , Urine Amorphous Sediment MOD KUSUM URATESH, Urine Bacteria NEGATIVE, Urine Casts NONE, Urine Mucus NEGATIVE, Urine Culture Indicated NO 08/28/17 17:07: White Blood Count 9.3, Red Blood Count 4.73, Hemoglobin 13.9, Hematocrit 40, Mean Corpuscular Volume 85, Mean Corpuscular Hemoglobin 29, Mean Corpuscular Hemoglobin Concent 35, Red Cell Distribution Width 12.3, Platelet Count 198, Mean Platelet Volume 11.8H, Neutrophils (%) (Auto) 67, Lymphocytes (%) (Auto) 22 , Monocytes (%) (Auto) 9, Eosinophils (%) (Auto) 1, Basophils (%) (Auto) 0, Neutrophils # (Auto) 6.2, Lymphocytes # (Auto) 2.1, Monocytes # (Auto) 0.9, Eosinophils # (Auto) 0.1, Basophils # (Auto) 0.0, Sodium Level 142, Potassium Level 4.0, Chloride Level 107, Carbon Dioxide Level 30, Anion Gap 5, Blood Urea Nitrogen 12, Creatinine 0.79, Estimat Glomerular Filtration Rate > 60, BUN/ Creatinine Ratio 15, Glucose Level 100, Calcium Level 9.3, Total Bilirubin 0.3, Aspartate Amino Transf (AST/SGOT) 20, Alanine Aminotransferase (ALT/SGPT) 17, Alkaline Phosphatase 56, Total Protein 6.8, Albumin 4.3 08/29/17 04:30: White Blood Count 10.2, Red Blood Count 4.55, Hemoglobin 13.3, Hematocrit 39, Mean Corpuscular Volume 86, Mean Corpuscular Hemoglobin 29, Mean Corpuscular Hemoglobin Concent 34, Red Cell Distribution Width 12.3, Platelet Count 184, Mean Platelet Volume 12.1H, Neutrophils (%) (Auto) 64, Lymphocytes (%) (Auto) 26 , Monocytes (%) (Auto) 8, Eosinophils (%) (Auto) 2, Basophils (%) (Auto) 1, Neutrophils # (Auto) 6.5, Lymphocytes # (Auto) 2.7, Monocytes # (Auto) 0.8, Eosinophils # (Auto) 0.2, Basophils # (Auto) 0.1, Sodium Level 141, Potassium Level 4.0, Chloride Level 109H, Carbon Dioxide Level 23, Anion Gap 9, Blood Urea Nitrogen 10, Creatinine 0.83, Estimat Glomerular Filtration Rate > 60, BUN/ Creatinine Ratio 12, Glucose Level 94, Calcium Level 8.8, Total Bilirubin 0.4, Aspartate Amino Transf (AST/SGOT) 17, Alanine Aminotransferase (ALT/SGPT) 15, Alkaline Phosphatase 50, Total Protein 6.1L, Albumin 3.8 Assessment/Plan Assessment/Plan Assessment/Plan RLQ pain, chronic patient with no improvement of her pain, we discussed diagnostic laparoscopy all other indicated procedures and she understands and wishes to proceed. discussed may not find a source of her pain as well. Patient to or this morning. Clinical Quality Measures DVT/VTE Risk/Contraindication: RFS Level Per Nursing on Admit: 0=No Risk/No VTE PPX LYDIA WALLACE DO Aug 29, 2017 08:52
[2017-08-29] MEDS ORDERED: LACTATED RINGERS 1,000 ML IV PRN (08:56)
[2017-08-29] MEDS ORDERED: metroNIDAZOLE 500MG/100ML IVPB 100 ML ONE (09:11)
[2017-08-29] MEDS ORDERED: ceFAZolin 1,000 MG (ANCEF) VIAL ONE (09:11)
[2017-08-29] MEDS ORDERED: ceFAZolin 1,000 MG (ANCEF) VIAL IV ONE (09:30)
[2017-08-29] MEDS ORDERED: metroNIDAZOLE 500MG/100ML IVPB 100 ML IV ONE (09:30)
[2017-08-29] MEDS ORDERED: MEPERIDINE (DEMEROL) INJ 50 MG/ML IVP PRN (09:45)
[2017-08-29] MEDS ORDERED: ONDANSETRON 4 MG/2 ML (SDV) Z0FRAN IVP PRN (09:45)
[2017-08-29] MEDS ORDERED: morphine INJ 10 MG/ML 1ML (SYR OR VIAL) IVP PRN (09:45)
[2017-08-29] MEDS ORDERED: NEOSTIGMINE 1 MG/ML 5 ML SYRINGE ONE (10:01)
[2017-08-29] MEDS ORDERED: GLYCOPYRROLATE 0.2 MG/ML (ROBINUL) 2 ML VIAL ONE (10:01)
[2017-08-29] MEDS ORDERED: DOCU-143 PO (10:08)
[2017-08-29] MEDS ORDERED: ACHD5005 PO (10:08)
--- NOTE | 2017-08-29 10:09 | Discharge Inst-Simple/Standard ---
Discharge Inst-Standard Discharge Medications New, Converted or Re-Newed RX: RX on Chart Patient Instructions/Follow Up Plan of Care/Instructions/FU: 2 weeks Jacques Activity as Tolerated: No Discharge Diet: Regular Diet Other Inst to Patient Follow up Appt: Make appointment for 2 week. Instructions: No lifting greater than 10 pounds. No strenuous activity. May shower in 24 hours, no tub bath or soaking. Use incentive spirometer at home as directed. No Smoking You have special glue over incisions it will fall off on its own. Symptoms to Report: Appetite Changes, Extremity Discoloration, Numbness/Tingling, Swelling Increased , Bleeding Excessive, Eyesight Changes, Pain Increased, Urine Color Change, Constipation(Persistent), Fever over 101 degree F, Pain/Pressure in chest, Urinating Difficulty, Cough Up/Vomit Blood, Heart Beat Irreg/Pounding, Pain/ Pressure in jaw, Vaginal Bleeding Increase, Cramps in feet or legs, Lightheadedness, Pain/Pressure in shoulder, Diarrhea(Persistent), Memory Changes Suddenly, Questions/Concerns, Weight gain consecutive days, Dizziness/ Fainting, Nausea/Vomiting, Shortness of Breath, Weight gain over 2 pounds If questions or concerns contact your physician Or seek help at emergency department. LYDIA WALLACE DO Aug 29, 2017 10:09
--- NOTE | 2017-08-29 10:11 | Progress Note-Post Operative ---
Post-Operative Progess Note Surgeon (s)/Transfer Table Operator Helper (s) Surgeon LYDIA WALLACE DO Transfer Table Operator Helper: Dr. Mejia Pre-Operative Diagnosis rlq abdominal pain Post-Operative Diagnosis early appendicits Procedure & Operative Findings Date of Procedure 08/29/17 Procedure Performed/Findings diagnostic laparoscopy appendectomy Anesthesia Type general Estimated Blood Loss Estimated blood loss (mL): min Specimens/Packing Specimens Removed appendix LYDIA WALLACE DO Aug 29, 2017 10:11
[2017-08-29] MEDS: HYDROcodone/APAP 5 MG/325 MG (LORTAB) TAB PO PRN ×3 (11:41→20:47)
[2017-08-29 12:00] VITALS: BP 112/60
[2017-08-29] MEDS: ONDANSETRON 4 MG/2 ML (SDV) Z0FRAN IVP PRN ×2 (14:47→16:27)
[2017-08-29 16:00] VITALS: BP 104/56
--- NOTE | 2017-08-30 21:30 | OPERATIVE REPORT ---
DATE OF SERVICE: 08/29/2017 PREOPERATIVE DIAGNOSIS: Right lower quadrant abdominal pain. POSTOPERATIVE DIAGNOSIS: Early appendicitis. PROCEDURES: Diagnostic laparoscopy and appendectomy. SURGEON: Lydia Hanna DO. SPRAY RIG OPERATOR: Dr. Mejia, assisted in retraction, dissection and closure. ESTIMATED BLOOD LOSS: Minimal. COMPLICATIONS: None. INDICATIONS: The patient is a 21-year-old female who has had persistent right lower quadrant abdominal pain for 2 weeks. She had a CT scan and transvaginal ultrasound, which has not been significantly helpful. The pain has persisted and the patient was discussed about diagnostic laparoscopy and the patient understands all risks and benefits of procedure. DESCRIPTION OF PROCEDURE: The patient was taken to the operating suite. She was prepped and draped in sterile fashion. Surgical pause was performed. Local anesthetic was infiltrated around the umbilicus. Incision was made and dissection was taken down to the fascia, which was then scored, grasped with Lemuel's and elevated and the abdomen was then entered. A 0 Vicryl suture was placed in a [id number] fashion for closure at the end of the case. A balloon trocar was inserted in the abdomen and pneumoperitoneum was achieved. Under direct visualization of the laparoscope, a 5 mm trocar was placed in the suprapubic region and a 5 mm trocar was placed in the left lower quadrant. The abdomen was then inspected. The pelvis had a small amount of fluid within it, appeared to be just physiologic. The right too had just a very minimal erythematous hue to it and the right ovary had a normal appearance. The uterus appeared normal except on the posterior aspect, just having really small nodularity to it, but otherwise appeared normal. The left ovary and tube had normal appearance. The appendix was then inspected. There were some erythematous changes towards the distal portion of it. A LigaSure was used to dissect through the mesoappendix. An Endo-EMANUEL 2.5 stapler was then fired across the base of the appendix. This was then placed in an Endobag and removed through the 12 mm trocar site. The small bowel was then run, which no pathology was noted. No Meckel's diverticulum present. The gallbladder had normal appearance. The liver had a normal smooth contour. The stomach had normal appearance. The colon visualized, had normal appearance. At this time, the abdomen was then desufflated, the trocars were removed. The 0 Vicryl was closed that was placed earlier to close the fascial defect of the 12 mm trocar site. The skin was then closed using 4-0 Monocryl in a simple subcuticular fashion. The area was then washed and dried and SwiftSet was placed over incisions. The patient tolerated the procedure well without any complications. She was taken to recovery room in stable condition. Job ID: [id number] DocumentID: [id number] Dictated Date: 08/29/2017 21:06:17 [place] Date: 08/30/2017 00:10:42 Dictated By: LYDIA HANNA DO
--- NOTE | 2017-08-31 14:06 | Anesthesia-General Post-Op ---
General Patient Condition Mental Status/LOC: Same as Preop Cardiovascular: Satisfactory Nausea/Vomiting: Absent Respiratory: Satisfactory Pain: Controlled Complications: Absent Post Op Complications Complications None Follow Up Care/Instructions Patient Instructions None needed. Anesthesia/Patient Condition Patient Condition Patient was re-admitted for post-op pain today so I rounded on her and she was doing well. She stated she had minimal post-op nausea but no vomiting on POD 1. She had minimal sore throat which is better today. No anesthetic complications noted. Will be available if needed. LORI COTE DO Aug 31, 2017 14:06
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
== END 2017-08-29 21:00 | disposition home or self-care (01) ==
LOC: EDUNIT# 16:28 → ER 16:29 → 4TH 18:14 → SDC 18:14 → 4TH 18:14 → UNDOADMOB 18:14 → 4TH 19:02 → UNDODISOB 08-29 21:00 → SDC 08-29 21:00
PROVIDERS: ATTEND Surgery
DX: K37 Unspecified appendicitis (principal)
CPT/HCPCS: 36415; 80053; 81000; 84703; 85025; 87081; 88304; 94664; 96360

== ENCOUNTER → 2017-08-28 | Outpatient (CLI) | payer BC ==
[~2017-08-28] MED LIST: ACHD5005 PO; DICY10CA12 PO; DOCU-143 PO; LORA10TA76 PO
--- NOTE | 2017-08-28 16:41 | Diagnostic Imaging Report ---
INDICATION: Pelvic pain. COMPARISON: CT scan from 08/21/2017. PROCEDURE: Real-time grayscale and color Doppler ultrasound of the pelvis is performed transabdominally and endovaginally. FINDINGS: The uterus measures 5.9 cm x 4.2 cm x 3.1 cm. There are a couple of nabothian cysts noted. Endometrium is about 5 mm in thickness. The right ovary measures 2.9 cm x 1.5 cm x 2.3 cm and the left ovary measures 3.2 cm x 1.6 cm x 2.7 cm. No adnexal mass is seen. There is a small amount of free fluid in the pelvis which is nonspecific but may be physiologic. IMPRESSION: 1. There is a small amount of free fluid in the pelvis which is nonspecific but may be physiologic. 2. No additional abnormality is seen. Dictated by: Dictated on workstation # [id number]
== END ==
LOC: RAD 13:33
PROVIDERS: ATTEND Surgery
DX: R10.2 Pelvic and perineal pain (principal); R10.31 Right lower quadrant pain
CPT/HCPCS: 76830; 76856

== ENCOUNTER 2017-08-30 21:40 | Observation (INO) | payer BC ==
[~2017-08-30] VITALS: Ht 154.9 cm; Wt 75.4 kg
[~2017-08-30 21:40] MED LIST changes: +ACHD5005 PO; +DOCU-143 PO
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
[2017-08-30] MEDS ORDERED: LACTATED RINGERS 1,000 ML IV ONE (21:53)
[2017-08-30 22:42] LABS: BASOPHILS % (AUTO) 0 % (0-10); EOSINOPHILS % (AUTO) 0 % (0-10); HEMATOCRIT 40 % (35-52); HEMOGLOBIN 13.6 G/DL (11.5-16.0); LYMPHOCYTES # (AUTO) 2.3 X 10^3 (1.0-4.0); LYMPHOCYTES % (AUTO) 18 % (12-44); MEAN CORPUSCULAR HEMOGLOBIN 29 PG (25-34); MEAN CORPUSCULAR HGB CONC 34 G/DL (32-36); MEAN CORPUSCULAR VOLUME 86 FL (80-99); MONOCYTES # (AUTO) 0.8 X 10^3 (0.0-1.0); MONOCYTES % (AUTO) 7 % (0-12); NEUTROPHILS # (AUTO) 9.5 X 10^3 (1.8-7.8); NEUTROPHILS % (AUTO) 75 % (42-75); PLATELET COUNT 210 10^3/uL (130-400); RED BLOOD COUNT 4.63 10^6/uL (4.35-5.85); RED CELL DISTRIBUTION WIDTH 12.2 % (10.0-14.5); WHITE BLOOD COUNT 12.7 10^3/uL (4.3-11.0)
[2017-08-30 23:01] LABS: ALANINE AMINOTRANSFERASE 15 U/L (0-55); ALBUMIN 4.3 GM/DL (3.2-4.5); ALKALINE PHOSPHATASE 52 U/L (40-136); BILIRUBIN,TOTAL 0.3 MG/DL (0.1-1.0); BUN/CREATININE RATIO 14; CALCIUM 9.3 MG/DL (8.5-10.1); CARBON DIOXIDE 27 MMOL/L (21-32); CHLORIDE 107 MMOL/L (98-107); CREATININE SERUM 0.93 MG/DL (0.60-1.30); GFR ESTIMATED > 60; GLUCOSE 105 MG/DL (70-105); POTASSIUM 3.6 MMOL/L (3.6-5.0); SODIUM 142 MMOL/L (135-145)
[2017-08-30] MEDS ORDERED: HYOSCYAMINE 0.125 MG (LEVSIN) TAB PO ONE (23:15)
[2017-08-30] MEDS ORDERED: KETOROLAC 30 MG/ML VIAL IVP ONE (23:15)
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
[2017-08-30 23:56] LABS: CLARITY,URINE SLIGHTLY CLOUDY; COLOR,URINE YELLOW; PH,URINE 6 (5-9)
[2017-08-30 23:57] LABS: BILIRUBIN,URINE NEGATIVE (NEGATIVE); GLUCOSE, URINE (UA) NEGATIVE (NEGATIVE); KETONES,URINE NEGATIVE (NEGATIVE); LEUKOCYTE ESTERASE ,URINE 1+ (NEGATIVE); NITRITE,URINE NEGATIVE (NEGATIVE); PROTEIN,URINE 1+ (NEGATIVE); UROBILINOGEN,URINE NORMAL (NORMAL); WBC,URINE RARE /HPF
[2017-08-30 23:58] LABS: BACTERIA,URINE NEGATIVE /HPF
[2017-08-31 00:35] VITALS: BP 104/62
[2017-08-31] MEDS ORDERED: morphine INJ 4 MG/ML 1 ML (VIAL/SYRINGE) ONE (00:39)
[2017-08-31] MEDS ORDERED: LACTATED RINGERS 1,000 ML IV ONE (00:40)
[2017-08-31] MEDS: LACTATED RINGERS 1,000 ML IV SCH ×3 (01:07→13:10)
[2017-08-31] MEDS ORDERED: morphine INJ 4 MG/ML 1 ML (VIAL/SYRINGE) IVP PRN (01:15)
[2017-08-31] MEDS ORDERED: ONDANSETRON 4 MG/2 ML (SDV) Z0FRAN IVP PRN (02:00)
[2017-08-31] MEDS ORDERED: KETOROLAC 30 MG/ML VIAL IVP PRN (02:00)
[2017-08-31] MEDS: HYOSCYAMINE 0.125 MG/ML (LEVSIN) 15ML BTL PO SCH ×4 (02:47→13:49)
[2017-08-31 04:39] VITALS: BP 98/64
--- NOTE | 2017-08-31 05:36 | Diagnostic Imaging Report ---
INDICATION: Status post appendectomy. Abdominal pain. COMPARISON: None FINDINGS: Supine and upright views of the abdomen show a a few scattered air-filled loops of small bowel, but otherwise no significant small bowel distention. Large amount of air and stool is also noted scattered throughout colon. No abnormal air fluid levels or free intraperitoneal air is seen. No abnormal extraosseous calcifications are seen. Bony and soft tissue structures are within normal limits. No organomegaly is identified. Accompanying upright chest shows normal heart size and pulmonary vascularity. The lungs are well aerated and clear. The mediastinum is normal in appearance. IMPRESSION: 1. Moderate air scattered throughout the small bowel and large amount of colonic air and stool. Findings could be on the basis of constipation, although mild postoperative ileus cannot be excluded. 2. No acute cardiopulmonary process. Dictated by: Dictated on workstation # [id number]
[2017-08-31 06:43] LABS: BASOPHILS % (AUTO) 0 % (0-10); EOSINOPHILS % (AUTO) 0 % (0-10); HEMATOCRIT 34 % (35-52); HEMOGLOBIN 11.5 G/DL (11.5-16.0); LYMPHOCYTES # (AUTO) 2.8 X 10^3 (1.0-4.0); LYMPHOCYTES % (AUTO) 30 % (12-44); MEAN CORPUSCULAR HEMOGLOBIN 29 PG (25-34); MEAN CORPUSCULAR HGB CONC 34 G/DL (32-36); MEAN CORPUSCULAR VOLUME 87 FL (80-99); MEAN PLATELET VOLUME 12.7 FL (7.4-10.4); MONOCYTES # (AUTO) 0.6 X 10^3 (0.0-1.0); MONOCYTES % (AUTO) 7 % (0-12); NEUTROPHILS # (AUTO) 5.7 X 10^3 (1.8-7.8); NEUTROPHILS % (AUTO) 62 % (42-75); PLATELET COUNT 166 10^3/uL (130-400); RED BLOOD COUNT 3.93 10^6/uL (4.35-5.85); WHITE BLOOD COUNT 9.1 10^3/uL (4.3-11.0)
[2017-08-31 07:00] LABS: ALANINE AMINOTRANSFERASE 15 U/L (0-55); ALBUMIN 3.6 GM/DL (3.2-4.5); ALKALINE PHOSPHATASE 38 U/L (40-136); BILIRUBIN,TOTAL 0.4 MG/DL (0.1-1.0); BUN/CREATININE RATIO 15; CALCIUM 8.7 MG/DL (8.5-10.1); CARBON DIOXIDE 25 MMOL/L (21-32); CHLORIDE 108 MMOL/L (98-107); CREATININE SERUM 0.81 MG/DL (0.60-1.30); GFR ESTIMATED > 60; GLUCOSE 97 MG/DL (70-105); SODIUM 143 MMOL/L (135-145); TOTAL PROTEIN 5.5 GM/DL (6.4-8.2)
--- NOTE | 2017-08-31 07:28 | ED Abdominal Pain ---
General Chief Complaint: Abdominal/GI Problems Stated Complaint: POST OP ABDOMINAL PAIN Nursing Triage Note: PT TO ED 9 PER W/C W/ C/O ABD PAIN ONSET AFTER HAVING APPENDECTOMY YESTERDAY. PT CRYING, W/O TEARS, UNABLE TO ANSWER QUESTIONS. MALE IN ROOM ANSWERING QUESTIONS. STATES "I THINK THEY SENT HER HOME TOO EARLY YESTERDAY." REPORTS HE IS GIVING PT HER PAIN MEDS SCHEDULED BUT DENIES IMPROVEMENT Sepsis Screen: No Definite Risk Source of Information: Patient, Family (DAD) History of Present Illness Date Seen by Provider: Aug 30, 2017 Time Seen by Provider: 21:53 Initial Comments PT ARRIVES VIA POV WITH FATHER PT HAD APPENDECTOMY DONE YESTERDAY BY DR. WALLACE/DR. KRISHNAN PT HAS HAD ONGOING PAIN, BUT AN HOUR AGO IT BECAME SEVERE--HAS BEEN TAKING HYDROCODONE EVERY 4 HOURS AND THE LAST DOSE WAS AT 1907 --NO RELIEF AT ALL. HAS NOT ATTEMPTED TO CONTACT SURGEON PAIN IS ALL OVER ABDOMEN HAS HAD NAUSEA AND VOMITED X 1 HAS HAD TEMP OF 99 - 100 AT HOME. TEMP IS 100.6 ON ARRIVAL TO ER PT HAS BEEN PASSING GAS, BUT HAS NOT HAD A BM SINCE BEFORE SURGERY PT HAS BEEN WALKING AND HAS BEEN UP A LITTLE MORE TODAY, SHOWERED, ETC. PT IS VOIDING A NORMAL AMOUNT, AND NO PAIN / PROBLEMS URINATING. PT HAS EATEN ALL DAY TODAY--[place] + CHEESE, DONUTS, BANANAS, PEANUT BUTTER SANDWICH, PEANUT BUTTER SHAKE PT IS [employer] STUDENT Allergies and Home Medications Allergies Coded Allergies: No Known Drug Allergies (Unverified , 08/21/17) Home Medications Docusate Sodium 100 Mg Capsule, 100 MG PO DAILY Prescribed by: LYDIA WALLACE on 08/29/17 1008 Hydrocodone Bit/Acetaminophen 1 Tab Tab, 1 TAB PO Q4H PRN Prescribed by: LYDIA WALLACE on 08/29/17 1008 Patient Home Medication List Home Medication List Reviewed: Yes Review of Systems Constitutional: see HPI, fever Respiratory: No Symptoms Reported, Denies Cough, Denies Shortness of Air Cardiovascular: No Symptoms Reported Gastrointestinal: See HPI, Abdominal Pain Genitourinary: No Symptoms Reported Musculoskeletal: no symptoms reported Skin: no symptoms reported Psychiatric/Neurological: Anxiety Endocrine: No Symptoms Reported Hematologic/Lymphatic: No Symptoms Reported Past Hgcxojc-Bvaazd-Lksesx Hx Patient Social History Alcohol Use: Occasionally Uses Number of Drinks Today: Alcohol Beverage of Choice: Wine Recreational Drug Use: No Smoking Status: Never a Smoker Recent Foreign Travel: No Contact w/Someone Who Travel: No Recent Infectious Disease Expo: No Recent Hopitalizations: No Ebola Symptoms: Denies Symptoms Listed Physical Abuse: No Sexual Abuse: No Mistreated: No Fear: No Immunizations Up To Date Tetanus Booster (TDap): Unknown PED Vaccines UTD: Yes Seasonal Allergies Seasonal Allergies: Yes Past Medical History Surgeries: Yes (APPY 08/29/17) Appendectomy Respiratory: No Cardiac: No Neurological: No Female Reproductive Disorders: Ovarian Cyst Genitourinary: No Gastrointestinal: No Musculoskeletal: No Endocrine: No HEENT: No Cancer: No Psychosocial: No Nursing Suicide Risk Score: 0 Integumentary: No Blood Disorders: No Family Medical History Anxiety disorder 19 FATHER FH: bipolar disorder 19 MOTHER FH: breast cancer 19 MOTHER FH: depression 19 FATHER Hypertension 19 FATHER Ovarian cyst 19 MOTHER Psychosocial problem 19 MOTHER (Bipolar) Cancer Physical Exam Vital Signs Vital Signs - First Documented 08/30/17 21:49 Temp 100.6 Pulse 75 Resp 20 B/P (MAP) 135/87 O2 Delivery Room Air Capillary Refill : General Appearance: other (PT VERY DRAMATIC, WAILING LOUDLY, SOBBING BUT NO TEARS . HOLDING A BAG OF FROZEN PEAS ON ABDOMEN. 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, no motor/sensory deficits, alert, oriented x 3 Skin: normal color, warm/dry, other (CHEEKS VERY FLUSHED) Focused Exam Lactate Level 08/30/17 22:31: Lactic Acid Level 1.30 Lactic Acid Level Laboratory Tests Test 08/30/17 22:31 Lactic Acid Level 1.30 MMOL/L (0.50-2.00) Progress/Results/Core Measures Lab Results Laboratory Tests Test 08/30/17 22:31 Range/Units White Blood Count 12.7 H 4.3-11.0 10^3/uL Red Blood Count 4.63 4.35-5.85 10^6/uL Hemoglobin 13.6 11.5-16.0 G/DL Hematocrit 40 35-52 % Mean Corpuscular Volume 86 80-99 FL Mean Corpuscular Hemoglobin 29 25-34 PG Mean Corpuscular Hemoglobin Concent 34 32-36 G/DL Red Cell Distribution Width 12.2 10.0-14.5 % Platelet Count 210 130-400 10^3/uL Mean Platelet Volume 12.0 H 7.4-10.4 FL Neutrophils (%) (Auto) 75 42-75 % Lymphocytes (%) (Auto) 18 12-44 % Monocytes (%) (Auto) 7 0-12 % Eosinophils (%) (Auto) 0 0-10 % Basophils (%) (Auto) 0 0-10 % Neutrophils # (Auto) 9.5 H 1.8-7.8 X 10^3 Lymphocytes # (Auto) 2.3 1.0-4.0 X 10^3 Monocytes # (Auto) 0.8 0.0-1.0 X 10^3 Eosinophils # (Auto) 0.0 0.0-0.3 10^3/uL Basophils # (Auto) 0.0 0.0-0.1 10^3/uL Sodium Level 142 135-145 MMOL/L Potassium Level 3.6 3.6-5.0 MMOL/L Chloride Level 107 98-107 MMOL/L Carbon Dioxide Level 27 21-32 MMOL/L Anion Gap 8 5-14 MMOL/L Blood Urea Nitrogen 13 7-18 MG/DL Creatinine 0.93 0.60-1.30 MG/DL Estimat Glomerular Filtration Rate > 60 BUN/Creatinine Ratio 14 Glucose Level 105 70-105 MG/DL Lactic Acid Level 1.30 0.50-2.00 MMOL/L Calcium Level 9.3 8.5-10.1 MG/DL Total Bilirubin 0.3 0.1-1.0 MG/DL Aspartate Amino Transf (AST/SGOT) 19 5-34 U/L Alanine Aminotransferase (ALT/SGPT) 15 0-55 U/L Alkaline Phosphatase 52 40-136 U/L Total Protein 7.0 6.4-8.2 GM/DL Albumin 4.3 3.2-4.5 GM/DL My Orders Orders - SOLANGE FARRIS DO Saline Lock/Iv-Start (08/30/17 21:53) Cbc With Automated Diff (08/30/17 21:53) Comprehensive Metabolic Panel (08/30/17 21:53) Lactic Acid Analyzer (08/30/17 21:53) Ua Culture If Indicated (08/30/17 21:53) Blood Culture (08/30/17 21:53) Saline Lock/Iv-Start (08/30/17 21:53) Lactated Ringers (Lr 1000 Ml Iv Solution (08/30/17 21:53) Acute Abd Series (08/30/17 22:25) Ketorolac Injection (Toradol Injection) (08/30/17 23:15) Hyoscyamine Sl Tablet (Levsin Sl Tablet) (08/30/17 23:15) Medications Given in ED Current Medications Medications Dose Ordered Sig/Bola Route Start Time Stop Time Status Last Admin Dose Admin Lactated Ringer's 1,000 ml @ 0 mls/hr Q0M ONCE IV 08/30/17 21:53 08/30/17 21:56 DC 08/30/17 22:33 1,000 MLS/HR Vital Signs/I&O 08/30/17 21:49 Temp 100.6 Pulse 75 Resp 20 B/P (MAP) 135/87 O2 Delivery Room Air Blood Pressure Mean: 75 Progress Note : Progress Note PT REFUSES CT SCAN--STATES "THEY TOLD ME I'VE HAD TOO MANY AND I SHOULDN'T GET ANY MORE" Comments ACUTE ABDOMEN XRAYS--NO OBSTRUCTION, BUT LARGE AMOUNT OF INTESTINAL GAS. NO OBVIOUS FREE AIR. LUNGS CLEAR--PENDING RADIOLOGIST REVIEW Reviewed: Reviewed by Me Departure Communication (Admissions) [id number]--SPOKE WITH DR. KRISHNAN, ACCEPTS PT FOR ADMIT TO DR. WALLACE Impression Primary Impression: Postoperative generalized abdominal pain Additional Impression: S/P laparoscopic appendectomy Disposition: ADMITTED INPATIENT Condition: Stable Admissions Decision to Admit Reason: Admit from ER (General) Decision to Admit/Date: Aug 30, 2017 Time/Decision to Admit Time: 23:15 Departure-Patient Inst. Referrals: NO,LOCAL PHYSICIAN (PCP) Primary Care Physician SOLANGE FARRIS DO Aug 31, 2017 07:28
[2017-08-31] MEDS: HYDROcodone/APAP 5 MG/325 MG (LORTAB) TAB PO PRN ×2 (08:24→13:49)
[2017-08-31 08:30] VITALS: BP 100/63
[2017-08-31] MEDS ORDERED: PANTOPRAZOLE 40 MG/10 ML (PROTONIX) VIAL IV SCH (09:00)
[2017-08-31] MEDS ORDERED: LORA10TA76 PO (11:02)
[2017-08-31 12:30] VITALS: BP 113/74
[2017-08-31 16:00] VITALS: BP 104/67
--- NOTE | 2017-08-31 16:25 | History & Physical-Surgical ---
History of Present Illness History of Present Illness Reason for visit/HPI Chief complaint :Postoperative pain Patient is a 21-year-old female who has been having 2 weeks of pain she was in the emergency department [place] night and was discussed Diagnostic laparoscopy all other indicated procedures. Appendectomy was performed at that time. No other cause her pain was visualized she maybe has some early appendicitis therefore the appendix was removed. Patient postoperatively was finally able to get her pain controlled and she was discharged home. Patient states that yesterday she was doing well we'll sedate inserted having severe abdominal pain. She is having nausea. She had abdominal x-rays which may be demonstrating a possible ileus. Patient today still having some abdominal pain. An she's having nausea but she has not had any emesis. Her father's at bedside. She states she's been walking today. No other complaints. Date of Admission Aug 30, 2017 at 23:10 Date Seen by Provider: Aug 31, 2017 Time Seen by Provider: 10:17 I consulted on this patient on 08/31/17 16:19 Attending Physician Lydia Hanna DO Admitting Physician No,Local Physician Consult Allergies and Home Medications Allergies Coded Allergies: No Known Drug Allergies (Unverified , 08/21/17) Home Medications Docusate Sodium 100 Mg Capsule, 100 MG PO DAILY Prescribed by: LYDIA HANNA on 08/29/17 1008 Hydrocodone Bit/Acetaminophen 1 Tab Tab, 1 TAB PO Q4H PRN Prescribed by: LYDIA HANNA on 08/29/17 1008 Loratadine 10 Mg Tablet, 10 MG PO DAILY PRN for ALLERGIES, (Reported) Patient Home Medication List Home Medication List Reviewed: Yes Past Zdkgtvm-Qwaaox-Bkeshg Hx Patient Social History Alcohol Use: Occasionally Uses Number of Drinks Today: Recreational Drug Use: No Smoking Status: Never a Smoker Recent Foreign Travel: No Contact w/Someone Who Travel: No Recent Infectious Disease Expo: No Recent Hopitalizations: No Ebola Symptoms: Denies Symptoms Listed Physical Abuse Screen: No Sexual Abuse: No Immunizations Up To Date Tetanus Booster (TDap): Unknown PED Vaccines UTD: Yes Seasonal Allergies Seasonal Allergies: Yes Surgeries History of Surgeries: Yes (APPY 08/29/17) Surgeries: Appendectomy Respiratory History of Respiratory Disorde: No Cardiovascular History of Cardiac Disorders: No Neurological History of Neurological Disord: No Reproductive System Female Reproductive Disorders: Ovarian Cyst Genitourinary History of Genitourinary Disor: No Gastrointestinal History of Gastrointestinal Di: No Musculoskeletal History of Musculoskeletal Dis: No Endocrine History of Endocrine Disorders: No HEENT History of HEENT Disorders: No Cancer History of Cancer: No Psychosocial History of Psychiatric Problem: No Integumentary History of Skin or Integumenta: No Blood Transfusions History of Blood Disorders: No Family Medical History Significant Family History: Cancer Family Medial History: Anxiety disorder 19 FATHER FH: bipolar disorder 19 MOTHER FH: breast cancer 19 MOTHER FH: depression 19 FATHER Hypertension 19 FATHER Ovarian cyst 19 MOTHER Psychosocial problem 19 MOTHER (Bipolar) Constitutional: no symptoms reported EENTM: no symptoms reported Respiratory: no symptoms reported Gastrointestinal: see HPI, abdominal pain (LLQ) All Other Systems Reviewed Negative Unless Noted: Yes (Negative excepted noted.) Physical Exam Vital Signs Vital Signs - First Documented 08/30/17 08/31/17 21:49 00:26 Temp 100.6 Pulse 75 Resp 20 B/P (MAP) 135/87 Pulse Ox 99 O2 Delivery Room Air Capillary Refill : General Appearance: No Apparent Distress HEENT: PERRL/EOMI Neck: Normal Inspection, Non Tender Respiratory: No Accessory Muscle Use, No Respiratory Distress Cardiovascular: Regular Rate, Rhythm Gastrointestinal: Other (Incisional tenderness no signs of infection) Rectal: Deferred Back: Normal Inspection Extremity: Normal Range of Motion, Non Tender Neurologic/Psychiatric: Alert, Oriented x3, No Motor/Sensory Deficits, Normal Mood/Affect Skin: Normal Color, Warm/Dry Lymphatic: No Adenopathy Comments Patient sitting at bedside appearing normal with walking in. Start discussing with her she seems to get nauseated redirected patient to lay down a never had any complaints of nausea. Wanting food. Physical exam changing with distraction Data Review Labs Laboratory Tests 08/30/17 22:31: White Blood Count 12.7H, Red Blood Count 4.63, Hemoglobin 13.6, Hematocrit 40, Mean Corpuscular Volume 86, Mean Corpuscular Hemoglobin 29, Mean Corpuscular Hemoglobin Concent 34, Red Cell Distribution Width 12.2, Platelet Count 210, Mean Platelet Volume 12.0H, Neutrophils (%) (Auto) 75, Lymphocytes (%) (Auto) 18 , Monocytes (%) (Auto) 7, Eosinophils (%) (Auto) 0, Basophils (%) (Auto) 0, Neutrophils # (Auto) 9.5H, Lymphocytes # (Auto) 2.3, Monocytes # (Auto) 0.8, Eosinophils # (Auto) 0.0, Basophils # (Auto) 0.0, Sodium Level 142, Potassium Level 3.6, Chloride Level 107, Carbon Dioxide Level 27, Anion Gap 8, Blood Urea Nitrogen 13, Creatinine 0.93, Estimat Glomerular Filtration Rate > 60, BUN/ Creatinine Ratio 14, Glucose Level 105, Lactic Acid Level 1.30, Calcium Level 9.3, Total Bilirubin 0.3, Aspartate Amino Transf (AST/SGOT) 19, Alanine Aminotransferase (ALT/SGPT) 15, Alkaline Phosphatase 52, Total Protein 7.0, Albumin 4.3 08/30/17 23:35: Urine Color YELLOW, Urine Clarity SLIGHTLY CLOUDY, Urine pH 6, Urine Specific [place] 1.025H, Urine Protein 1+H, Urine Glucose (UA) NEGATIVE, Urine Ketones NEGATIVE, Urine Nitrite NEGATIVE, Urine Bilirubin NEGATIVE, Urine Urobilinogen NORMAL, Urine Leukocyte Esterase 1+H, Urine RBC (Auto) 3+H, Urine RBC 5-10H, Urine WBC RARE, Urine Squamous Epithelial Cells 2-5, Urine Crystals NONE, Urine Bacteria NEGATIVE, Urine Casts NONE, Urine Mucus LARGEH, Urine Culture Indicated NO 08/31/17 05:28: White Blood Count 9.1, Red Blood Count 3.93L, Hemoglobin 11.5, Hematocrit 34L, Mean Corpuscular Volume 87, Mean Corpuscular Hemoglobin 29, Mean Corpuscular Hemoglobin Concent 34, Red Cell Distribution Width 12.0, Platelet Count 166, Mean Platelet Volume 12.7H, Neutrophils (%) (Auto) 62, Lymphocytes (%) (Auto) 30 , Monocytes (%) (Auto) 7, Eosinophils (%) (Auto) 0, Basophils (%) (Auto) 0, Neutrophils # (Auto) 5.7, Lymphocytes # (Auto) 2.8, Monocytes # (Auto) 0.6, Eosinophils # (Auto) 0.0, Basophils # (Auto) 0.0, Sodium Level 143, Potassium Level 4.0, Chloride Level 108H, Carbon Dioxide Level 25, Anion Gap 10, Blood Urea Nitrogen 12, Creatinine 0.81, Estimat Glomerular Filtration Rate > 60, BUN/ Creatinine Ratio 15, Glucose Level 97, Calcium Level 8.7, Total Bilirubin 0.4, Aspartate Amino Transf (AST/SGOT) 15, Alanine Aminotransferase (ALT/SGPT) 15, Alkaline Phosphatase 38L, Total Protein 5.5L, Albumin 3.6 Microbiology 08/30/17 Blood Culture - Preliminary, Resulted No growth Assessment/Plan Assessment/Plan Admission Diagonsis Postoperative pain Admission Status: Observation Assessment/Plan Postoperative pain status post diagnostic laparoscopy with appendectomy. Reason given IV fluids and clear liquid diet. Patient will repeat labs all within normal range. Patient encouraged to increase activity. I feel the patient she is experiencing postoperative pain, patient needs to increase activity. We will see how she does today and if she is doing okay will plan discharge home tonight. Oral pain medications. Final Diagnosis Status post diagnostic laparoscopy appendectomy Postoperative pain Clinical Quality Measures DVT/VTE Risk/Contraindication: Risk Factor Score Per Nursin RFS Level Per Nursing on Admit: 1=Low/No VTE PPX LYDIA HANNA DO Aug 31, 2017 16:25
--- NOTE | 2017-08-31 16:29 | Discharge Inst-Simple/Standard ---
Discharge Inst-Standard Patient Instructions/Follow Up Plan of Care/Instructions/FU: 2 weeks Jacques Activity as Tolerated: No Discharge Diet: Regular Diet Other Inst to Patient Follow up Appt: Make appointment for 2 week. Instructions: No lifting greater than 10 pounds. No strenuous activity. May shower in 24 hours, no tub bath or soaking. Use incentive spirometer at home as directed. No Smoking Skin/Wound Care: Same as last discharge. Symptoms to Report: Appetite Changes, Extremity Discoloration, Numbness/Tingling, Swelling Increased , Bleeding Excessive, Eyesight Changes, Pain Increased, Urine Color Change, Constipation(Persistent), Fever over 101 degree F, Pain/Pressure in chest, Urinating Difficulty, Cough Up/Vomit Blood, Heart Beat Irreg/Pounding, Pain/ Pressure in jaw, Vaginal Bleeding Increase, Cramps in feet or legs, Lightheadedness, Pain/Pressure in shoulder, Diarrhea(Persistent), Memory Changes Suddenly, Questions/Concerns, Weight gain consecutive days, Dizziness/ Fainting, Nausea/Vomiting, Shortness of Breath, Weight gain over 2 pounds If questions or concerns contact your physician Or seek help at emergency department. LYDIA WALLACE DO Aug 31, 2017 16:29
[2017-08-31 17:01] VITALS: BP 104/67
== END 2017-08-31 16:28 | disposition home or self-care (01) ==
LOC: EDUNIT# 21:40 → ER 21:43 → 4TH 23:10
PROVIDERS: ADMIT Surgery; ATTEND Surgery
DX: G89.18 Other acute postprocedural pain (principal)
CPT/HCPCS: 36415; 74022; 80053; 81000; 83605; 85025; 87040; 96374; G0378

== ENCOUNTER → 2018-03-26 | Outpatient (CLI) | payer BC ==
[~2018-03-26] MED LIST changes: +LORA10TA76 PO
--- NOTE | 2018-03-26 17:05 | Diagnostic Imaging Report ---
INDICATION: Chronic pelvic pain. Transabdominal and transvaginal study was performed. FINDINGS: The uterus measures 5 x 4 x 3 cm. The endometrium measures 4 mm. Left ovary measures 2.5 x 1.4 cm. The right ovary is not identified. The uterus and left ovary appear normal. There is blood flow to left ovary. Right ovary is not seen but no adnexal mass or free fluid is seen. IMPRESSION: No abnormality is seen. Dictated by: Dictated on workstation # [id number]
== END ==
LOC: RAD 14:52
PROVIDERS: ATTEND Obstetrics & Gynecology
DX: G89.29 Other chronic pain (principal); R10.2 Pelvic and perineal pain
CPT/HCPCS: 76830; 76856